=== PATIENT | female | born 1990 | race Caucasian/White ===

== ENCOUNTER 2020-08-03 20:06 | Emergency (ER) | payer BC ==
[2020-08-03 20:26] VITALS: TEMP 98.7; BMI 21.2
--- NOTE | 2020-08-03 20:26 | PDOC ---
History of Present Illness - General Chief Complaint: Shortness of Breath Stated Complaint: SOB, LIGHTHEADED Time Seen by Provider: 08/03/20 20:23 - History of Present Illness Initial Comments: This 29-year-old woman with a history of GERD (evidence seen on endoscopy) presents with history of lightheadedness, shortness of breath and chest pressure for the last several hours. Patient states that she had been fasting earlier in the day ([place]) but decided to eat lunch at work because she felt lightheaded. When she returned home this evening, she felt very weak stating that she felt she was about to faint. She was aware of rapid heartbeat (measured at 130 bpm), nausea and her shortness of breath continued. She denies any recent fever/chills, cough, upper respiratory symptoms, vomiting/diarrhea. 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) Past History - Medical History Allergies/Adverse Reactions: Allergies Allergy/AdvReac Type Severity Reaction Status Date / Time No Known Allergies Allergy Verified 08/03/20 20:07 Home Medications: Ambulatory Orders Famotidine [Pepcid] 20 mg PO BID 08/03/20 Multivitamin [Multivitamins] 1 each PO DAILY 08/03/20 Norgestimate-Ethinyl Estradiol [Tri-Lo-Mone Tablet] 1 tab PO DAILY 08/03/20 - Psycho-Social/Smoking History Smoking History: Never smoked Review of Systems - Review of Systems Able to Perform ROS?: Yes Comments:: 12 point review of systems is negative except for what is noted in the history of present illness *Physical Exam - Physical Exam GENERAL: Adult female, alert and oriented x3, no acute distress; BP 146/91, HR 80/min RR18/min, pulse ox 100% on RA HEAD: Normal with no signs of trauma. EYES: PERRLA, EOMI, sclera anicteric, conjunctiva clear. ENT: Ears normal, nares patent, oropharynx clear without exudates. Dry mucous membranes. NECK: Normal range of motion, supple without lymphadenopathy, JVD, or masses. LUNGS: Breath sounds equal, clear to auscultation bilaterally. No wheezes, and no crackles. HEART:Regular rate and rhythm, normal S1 and S2 without murmur, rub or gallop. ABDOMEN:.normal bowel sounds No guarding,tenderness or rebound.No masses No distention. EXTREMITIES: Normal range of motion, no edema. No clubbing or cyanosis. No erythema, or tenderness. NEUROLOGICAL: Cranial nerves II through XII grossly intact. Normal speech. No focal neurological deficits. MUSCULOSKELETAL: Back non-tender to palpation, no CVA tenderness SKIN: Warm, Dry, normal turgor, no rashes or lesions noted. Twelve-lead electrocardiogram performed: Normal sinus rhythm 77/min; sinus arrhythmia but no other arrhythmia noted; [place], waveforms and intervals are all normal. No evidence of acute ST or T wave abnormalities ED Treatment Course - LABORATORY CBC & Chemistry Diagram: 08/03/20 20:54 08/03/20 20:58 Medical Decision Making - Medical Decision Making As noted above, this 29-year-old woman with a history of GERD but no serious medical issues presents with several hour history of lightheadedness and shortness of breath, accompanied intermittently with chest pressure. Her lightheadedness peaked just prior to presentation; she had no episode of syncope although she seemed close to losing consciousness by history. She had been fasting earlier in the day but had 1 meal at midday; she admits her fluid intake was low throughout the day. 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 Exam as noted Because the patient was receiving exogenous estrogens (on oral contraceptives) and has been short of breath, d-dimer will be evaluated to investigate thromboembolic embolic event. CBC, chemistry profile, troponin, UA, PGU,TSH will be also sent to investigate for possibility of anemia, dehydration, cardiac ischemia/infarct (doubt), UTI, early , hyperthyroidism. Meanwhile, 1 L normal saline IV will be given All laboratory evaluation is essentially normal including d-dimer (121). Results discussed with patient. Patient feels significantly better (though still slightly lightheaded) after IV fluids. She will be discharged with recommendations to rest and drink plenty of fluids, making sure she eats regular meals also. Sleep deprivation and stress secondary to her medical residency likely has a role in the patient's symptoms. She should return to the emergency room if she has any persistent shortness of breath or lightheadedness. Follow-up with general medical doctor is recommended within the next 1 to 2 weeks Discharge - Discharge Information Problems reviewed: Yes Clinical Impression/Diagnosis: Lightheadedness Condition: Stable Disposition: HOME - Follow up/Referral - Patient Discharge Instructions Patient Printed Discharge Instructions: DI for Dehydration -- Adult Additional Instructions: Rest; drink plenty of fluids Eat regular meals Return to ER if you have recurrent shortness of breath, lightheadedness, weakness Follow-up with general medical doctor within the next week - Post Discharge Activity
[2020-08-03] MEDS ORDERED: SODIUM CHLORIDE 1,000 ML IV STA (20:40)
[2020-08-03 21:03] LABS: BASO % 0.9 % (0-2.0); EOS % 2.7 % (0-4.5); HEMATOCRIT 39.2 % (32.4-45.2); HEMOGLOBIN 12.9 GM/dl (10.7-15.3); LYMPH % 27.2 % (8-40); MCH 29.6 pg (25.7-33.7); MCHC 32.8 g/dl (32.0-36.0); MEAN CELL VOLUME 90.3 fl (80-96); MEAN PLT VOLUME 9.2 fl (7.5-11.1); MONO % 7.8 % (3.8-10.2); NEUT % 61.4 % (42.8-82.8); PLATELET COUNT 257 K/MM3 (134-434); RBC 4.34 M/mm3 (3.60-5.2); RDW 13.4 % (11.6-15.6)
[2020-08-03 21:22] LABS: ALBUMIN 4.5 g/dl (3.4-5.0); BILIRUBIN,TOTAL 0.7 mg/dl (0.2-1); CALCIUM 9.5 mg/dl (8.5-10); CREATININE 0.7 mg/dl (0.55-1.3); POTASSIUM 3.6 mmol/L (3.5-5.1); TOT PROT 7.6 g/dl (6.4-8.2)
[2020-08-03 21:32] LABS: EPITHELIAL CELLS RARE /hpf
[2020-08-03 21:46] VITALS: BP 126/84; PULSE 74
--- NOTE | 2020-08-04 10:16 | EKG ---
Test Reason : Blood Pressure : / mmHG Vent. Rate : 073 BPM Atrial Rate : 073 BPM P-R Int : 142 ms QRS Dur : 076 ms QT Int : 398 ms P-R-T Axes : 063 031 033 degrees QTc Int : 438 ms NORMAL SINUS RHYTHM WITH SINUS ARRHYTHMIA NORMAL ECG NO PREVIOUS ECGS AVAILABLE Confirmed by MD Angela, Justin ([id number]) on 08/04/2020 10:16:36 AM Referred By: Confirmed By:Justin Miller MD
== END 2020-08-03 22:19 | disposition home or self-care (01) ==
LOC: FER 20:06
DX: R42 Dizziness and giddiness (principal)
CPT/HCPCS: 36415; 80053; 81003; 81015; 82550; 84443; 84484; 84703; 85025; 85379; 93005; 99284-25; U0003

== ENCOUNTER 2020-11-16 17:12 | Emergency (ER) | payer OTHER, BC ==
[2020-11-16 17:28] VITALS: BP 138/78; PULSE 80; TEMP 98; BMI 21.2
[2020-11-16] MEDS ORDERED: EMTRICITABINE 200MG/TENOFOVIR 300MG PO ONE (17:34)
[2020-11-16] MEDS ORDERED: RALTEGRAVIR POTASSIUM 400 MG TAB PO ONE (17:34)
[2020-11-16] MEDS ORDERED: HIV POST EXPOSURE PROPHYLAXIS KIT PO ONE (17:47)
[2020-11-16 18:11] LABS: BASO % 0.9 % (0-2.0); HEMATOCRIT 39.2 % (32.4-45.2); HEMOGLOBIN 12.9 GM/dL (10.7-15.3); LYMPH % 25.8 % (8-40); MCH 29.2 pg (25.7-33.7); MEAN CELL VOLUME 88.5 fl (80-96); MEAN PLT VOLUME 9.1 fl (7.5-11.1); MONO % 7.6 % (3.8-10.2); NEUT % 63.7 % (42.8-82.8); PLATELET COUNT 239 K/MM3 (134-434); RBC 4.43 M/mm3 (3.60-5.2); RDW 14.4 % (11.6-15.6); WHITE BLOOD COUNT 6.1 K/mm3 (4.0-10.0)
[2020-11-16 18:32] LABS: CALCIUM 9.2 mg/dL (8.5-10.1)
[2020-11-16 18:33] LABS: BLOOD UREA NITROGEN 10.6 mg/dL (7-18)
[2020-11-16 18:35] LABS: URIC ACID 4.3 mg/dL (2.6-7.2)
[2020-11-16 18:36] LABS: CREATININE 0.7 mg/dL (0.55-1.3); TOT PROT 7.8 g/dl (6.4-8.2)
[2020-11-16 18:37] LABS: PHOSPHOROUS 3.7 mg/dL (2.5-4.9)
[2020-11-16 18:38] LABS: BILIRUBIN,TOTAL 0.9 mg/dL (0.2-1)
[2020-11-16 20:36] LABS: HIV INTERPRETATION NEGATIVE (NEGATIVE)
== END 2020-11-16 19:02 | disposition home or self-care (01) ==
LOC: JER 17:12 → JERFT 17:12
DX: Z77.21 Contact with and (suspected) exposure to potentially hazardous body fluids (principal)
CPT/HCPCS: 36415; 80053; 82465; 82977; 83615; 84100; 84478; 84550; 85025; 86317; 86704; 86706; 86803; 87340; 87389; 99283-25

== ENCOUNTER 2021-03-25 07:15 | Day surgery (SDC) | payer BC ==
[2021-03-25] MEDS ORDERED: FERRIC CARBOXYMALTOSE 750 MG in SODIUM CHLORIDE 250 ML IVPB ONE (16:15)
[2021-03-25 17:46] VITALS: TEMP 98.2
[2021-03-26 06:48] VITALS: BP 106/72; PULSE 71
== END 2021-03-25 16:20 | disposition home or self-care (01) ==
LOC: JONCNONCHE 07:15
PROVIDERS: ATTEND Internal Medicine Hematology & Oncology
PROC: 3E033GC Introduction of Other Therapeutic Substance into Peripheral Vein, Percutaneous Approach (ICD-10-PCS; principal; 2021-03-25)
DX: D50.9 Iron deficiency anemia, unspecified (principal)
CPT/HCPCS: 84703; 96365; J1439

== ENCOUNTER → 2021-04-01 | Day surgery (SDC) | payer BC ==
[~2021-04-01] MED LIST: FERRIC CARBOXYMALTOSE 750 MG in SODIUM CHLORIDE 250 ML IVPB ONE
== END | disposition home or self-care (01) ==
LOC: JONCNONCHE 09:27
PROVIDERS: ATTEND Internal Medicine Hematology & Oncology
PROC: 3E033GC Introduction of Other Therapeutic Substance into Peripheral Vein, Percutaneous Approach (ICD-10-PCS; principal; 2021-04-01)
DX: Z53.20 Procedure and treatment not carried out because of patient's decision for unspecified reasons (principal); D50.9 Iron deficiency anemia, unspecified
CPT/HCPCS: 96365

== ENCOUNTER 2021-04-02 07:08 | Day surgery (SDC) | payer BC ==
[2021-04-02] MEDS ORDERED: FERRIC CARBOXYMALTOSE 750 MG in SODIUM CHLORIDE 250 ML IVPB ONE (16:45)
[2021-04-02 18:34] VITALS: BP 108/66; PULSE 77; TEMP 98.7
== END 2021-04-02 18:20 | disposition home or self-care (01) ==
LOC: JONCNONCHE 07:08
PROVIDERS: ATTEND Internal Medicine Hematology & Oncology
PROC: 3E033GC Introduction of Other Therapeutic Substance into Peripheral Vein, Percutaneous Approach (ICD-10-PCS; principal; 2021-04-02)
DX: D50.9 Iron deficiency anemia, unspecified (principal)
CPT/HCPCS: 96365; J1439

== ENCOUNTER 2021-06-12 06:35 | Emergency (ER) | payer BC ==
[2021-06-12 06:48] VITALS: BMI 21.2
[2021-06-12] MEDS ORDERED: ACETAMINOPHEN 1000 MG/100 ML VIAL (NON FORMULARY) IVPB ONE (07:15)
[2021-06-12] MEDS ORDERED: MAG HYDROX/AL HYDROX/SIMETH 30 ML UNIT-DOSE CUP PO ONE (07:15)
[2021-06-12] MEDS ORDERED: SODIUM CHLORIDE 1,000 ML IV STA (07:15)
[2021-06-12] MEDS ORDERED: FAMOTIDINE 20 MG/50 ML IVPB 50 ML IVPB ONE (07:15)
[2021-06-12] MEDS ORDERED: MAG HYDROX/AL HYDROX/SIMETH 30 ML UNIT-DOSE CUP ONE (08:02)
[2021-06-12] MEDS ORDERED: ACETAMINOPHEN INJECTION 100 ML IVPB ONE (08:02)
[2021-06-12] MEDS ORDERED: FAMOTIDINE 20 MG/50 ML IVPB 20 MG/50 ML MG IVPB ONE ×2 (08:30→08:42)
[2021-06-12 09:02] LABS: BASO % 0.3 % (0-2.0); EOS % 0.1 % (0-4.5); HEMATOCRIT 43.7 % (32.4-45.2); HEMOGLOBIN 14.6 GM/dl (10.7-15.3); LYMPH % 7.4 % (8-40); MCH 31.5 pg (25.7-33.7); MCHC 33.4 g/dl (32.0-36.0); MEAN CELL VOLUME 94.1 fl (80-96); MEAN PLT VOLUME 9.5 fl (7.5-11.1); MONO % 4.6 % (3.8-10.2); NEUT % 87.6 % (42.8-82.8); PLATELET COUNT 153 10^3/uL (134-434); RBC 4.65 M/mm3 (3.60-5.2); RDW 12.7 % (11.6-15.6); WHITE BLOOD COUNT 8.4 K/mm3 (4.0-10.8)
[2021-06-12 09:08] LABS: ALBUMIN 4.4 g/dl (3.4-5.0); CALCIUM 9.1 mg/dl (8.5-10); CREATININE 0.7 mg/dl (0.55-1.3); TOT PROT 7.5 g/dl (6.4-8.2)
[2021-06-12] MEDS ORDERED: POTASSIUM CHLORIDE TABS 20 MEQ TABLET.ER (FP) PO ONE ×2 (09:16→09:30)
[2021-06-12 09:22] VITALS: BP 101/65; PULSE 80; TEMP 98.7
[2021-06-12 09:26] LABS: HCG,QUALITATIVE URINE Negative
[2021-06-12 10:00] LABS: EPITHELIAL CELLS MODERATE /hpf; URINE MUCUS 2+
== END 2021-06-12 09:45 | disposition home or self-care (01) ==
LOC: FER 06:35
PROC: 3E033GC Introduction of Other Therapeutic Substance into Peripheral Vein, Percutaneous Approach (ICD-10-PCS; principal; 2021-06-12)
DX: K52.9 Noninfective gastroenteritis and colitis, unspecified (principal)
CPT/HCPCS: 36415; 80053; 81003; 81015; 84703; 85025; 87086; 87804; 99284-25; C9803; J0131; U0003; U0005